=== PATIENT | female | born 1985 | race Two or more races ===

== ENCOUNTER 2017-02-15 02:04 | Inpatient (IN) | payer OTHER ==
[~2017-02-15] VITALS: Ht 167.6 cm; Wt 85.3 kg
[~2017-02-15 02:04] MED LIST: Docusate Sodium PO; IBUP800T28 PO; OXYC1TAB24 PO
[2017-02-15] MEDS ORDERED: Lactated Ringer's 1,000 ML IV ONE (02:25)
[2017-02-15 03:42] LABS: Mean Corpuscular Hemoglobin 25.3 pg (27.0-35.0); Mean Corpuscular Volume 78.5 fL (81-100)
[2017-02-15] MEDS ORDERED: CeFAZolin Inj 2 GM in IV Premix 1 EACH IV ONE (04:10)
[2017-02-15] MEDS ORDERED: Sodium Citrate-Citric Acid 15 mL Solution PO SCH (04:10)
[2017-02-15] MEDS ORDERED: Lactated Ringer's 1,000 ML IV SCH (04:10)
[2017-02-15] MEDS ORDERED: Hemorrhage Kit, Post Partum XX ONE ×2 (04:10→05:55)
[2017-02-15] MEDS ORDERED: Methylergonovine 0.2 mg/mL Inj IM PRN ×2 (04:10→05:55)
[2017-02-15] MEDS ORDERED: Carboprost 250 mCg/mL Inj IM PRN ×2 (04:10→05:55)
[2017-02-15] MEDS ORDERED: Oxytocin 10 Unit/mL Inj IM PRN ×2 (04:10→05:55)
--- NOTE | 2017-02-15 04:21 | PCM.HPANE ---
Patient Data Surgeon Admitting Provider:Mike Ortega MD Attending Provider:iMke Ortega MD Primary Care Physician:Mike Ortega MD Other Provider:Issac Rosenberg Anesthesia Reason for Visit Term Labor Ht/WT & BMI Body Mass Index Allergies Coded Allergies: latex (Verified Allergy, Unknown, 05/07/15) Past Anesthesia History Anesthesia History: Denies:: Abnormal Airway, Anesthesia Reactions, Difficult Intubation, Fam Anesthesia Reaction, Fam Malignant Hypertherm, Malignant Hyperthermia Medications Active Scripts oxyCODONE-Acetaminophen 5-325 mg 1 Tab Tablet1-2 Tab PO Q4H PRN For Pain #30 TABLET Ref 0 Prov:Mike Ortega MD 05/10/15 Ibuprofen 800 Mg [id number] Mg PO Q6H PRN For Pain #30 TABLET Ref 1 Prov:Mike Ortega MD 05/10/15 [Docusate Sodium] (Colace)100 MG CAPSULE No Conflict [id number] Mg PO BID #60 CAPSULE Ref 1 Prov:Mike Ortega MD 05/10/15 History History of ENT Problems?: No HEENT History: Denies:: Abnormal Airway Cataracts Difficult Intubation Dysphagia Glaucoma Hearing Problem Sinus Problem TMJ Denture Type: None Teeth Condition: Within Normal Limits Hx of Heart Problems?: No Cardiovascular History: Positive for:: Hypertension Denies:: AICD Abdominal Aortic Aneurism Atrial Fibrillation Cardiac Surgery Chest Pain Congestive Heart Failure Coronary Artery Disease Edema Heart Murmur Irregular Heartbeat Pacemaker Peripheral Vascular Rheumatic Fever Thrombophlebitis Valvular Heart Disease Hx of Respiratory Problem?: No Respiratory History: Positive for:: Cough Denies:: Asthma COPD Chest Surgery Dyspnea Emphysema Hemoptysis Oxygen Administration Pneumonia Pulmonary Embolism Tuberculosis Use of C-PAP Machine Use of Inhalers / NEBS Hx Neurologic Problems?: No Neurological History: Denies:: Alzheimer's Disease CVA Dementia Dizziness Headaches Multiple Sclerosis Parkinson's Disease Peripheral Neuropathy Seizures TIA Hx of GI Problems?: No Gastrointestinal History: Denies:: Cirrhosis Diverticulitis Gall Bladder Disease Gastroesphageal Reflux Gastrointestinal Bleeding Heartburn Hepatitis Hiatal Hernia Liver Disease Rectal Bleeding Hx of Problems?: No Genitourinary History: Denies:: HX of Hemodialysis Kidney Stones Urinary Tract Infection HX of Peritoneal Dialysis: No Hx Musculoskeletal Problems?: No Musculoskeletal History: Denies:: Back Injury Degenerative Joint Fibromyalgia Joint Replacement Musculoskeletal Trauma Myasthenia Gravis Osteoarthritis Rheumatoid Arthritis Systemic Lupus Hx of Psycho/Social Problems?: No Hx Surgeries?: No Hx Any Other Health Problems?: No Other History: Denies:: Cancer Endocrine Disease Hospitalization Thyroid Disease History Blood Transfusions: Denies:: Accept Blood Products? Blood Transfuse Reaction Blood Transfusions Hx Diabetes: No Smoking Status: Never Smoker Stop/Bang NATAILYA Risk Assessment: Low Risk, <3 Yes Risk Assessment Category Category 1A: Patient has history of documented sleep apnea, and HAS NOT received any narcotic, sedative or anesthesia administration during this stay. Category 1B: Patient has history of documented sleep apnea, and HAS received any narcotic , sedative or anesthesia administration during this stay Category 2: Patient has SUSPECTED Obstructive Sleep Apnea, and HAS received any narcotic , sedative or anesthesia administration during this stay. Category 3: Patient has SUSPECTED Obstructive Sleep Apnea and HAS NOT received narcotic, sedative or anesthesia administration during this stay. Category 4: Outpatient in Procedural Areas with known sleep apnea or who screen positive for High Risk via the STOP/BANG questionnaire. Exam Exam Vital Signs Vital Signs Date Time Temp Pulse Resp B/P Pulse Ox O2 Delivery O2 Flow Rate FiO2 02/15/17 02:37 78 General Appearance: Alert, Oriented X3, Cooperative, No Acute Distress HEENT/AIRWAY: MP 2 Lungs: Clear to Auscultation, Normal Air Movement Heart: Exam Unremarkable, Regular Rate/Rhythm, No Murmurs/Rubs/Gallops Meds/Labs/Diagnostics Admission Meds Current Medications Terbutaline Sulfate 0.25 mg 0.25 mg ONCE ONCE SUBQ Last administered on 02:37; Start 02/15/17 at 02:25; Stop 02/15/17 at 02:26; Status DC Lactated Ringer's (Lr) 1,000 ml @ 0 mls/hr Q0M ONCE IV Last administered on 02:37; Start 02/15/17 at 02:25; Stop 02/15/17 at 02:26; Status DC Labs Test 02/15/17 03:30 White Blood Count 14.8th/mm3 (3.8-10.1) Red Blood Count 5.25mil/mm3 (3.90-5.20) Hemoglobin 13.3g/dL (12.0-15.6) Hematocrit 41.2% (35.0-46.0) Mean Corpuscular Volume 78.5fL (81-100) Mean Corpuscular Hemoglobin 25.3pg (27.0-35.0) Mean Corpuscular Hemoglobin Concent 32.3% (32.0-37.0) Red Cell Distribution Width 14.5% (12.3-15.4) Platelet Count 251bil/L (150-400) Plan Impression Patient chart reviewed, patient interviewed and anesthestic plan with risks, benefits, and alternatives discussed, and informed consent obtained. NPO per Anesth. Guidelines: Yes ASA Physical Status: ASA2 Mod Systemic Disease Anesthetic Plan: SAB Bene/Risks/Altern/Consents: Yes HP Complete Prior to Induction: Yes Renae Thompson MD February 15, 2017 04:21
[2017-02-15] MEDS ORDERED: Morphine PF 1 mg/mL 10 mL Inj ONE (04:27)
[2017-02-15] MEDS ORDERED: Lactated Ringer's 1,000 ML IV PRN (05:16)
[2017-02-15] MEDS ORDERED: Dexamethasone 4 mg/mL Inj IVPUSH PRN (05:20)
[2017-02-15] MEDS ORDERED: MetoCLOpramide 5 mg/mL 2 mL Inj IVPUSH PRN (05:20)
[2017-02-15] MEDS ORDERED: Ondansetron 2 mg/mL 2 mL Inj IVPUSH PRN (05:20)
[2017-02-15] MEDS ORDERED: fentaNYL-PF 50 mCg/mL 2 mL Inj IVPUSH PRN (05:20)
[2017-02-15] MEDS ORDERED: Morphine PF 1 mg/mL 10 mL Inj EPIDURAL ONE (05:20)
[2017-02-15] MEDS ORDERED: Atropine 0.4 mg/mL Inj IV PRN (05:20)
[2017-02-15] MEDS ORDERED: EPHEDrine Sulfate 50 mg/mL Inj IVPUSH PRN (05:20)
[2017-02-15] MEDS ORDERED: hydrOXYzine Pamoate 25 mg Capsule PO PRN (05:55)
[2017-02-15] MEDS ORDERED: Acetaminophen IV 1,000 MG in IV Premix 1 EACH IV PRN (05:55)
[2017-02-15] MEDS ORDERED: Oxytocin 30 Units/500 mL LR 30 UNITS in IV Premix 1 EACH IV PRN (05:55)
[2017-02-15] MEDS ORDERED: Sodium Chloride LOK Flush 10 mL Syringe IVFLUSH PRN (05:55)
[2017-02-15] MEDS ORDERED: HYDROcodone-APAP 5-325 mg Tablet PO PRN (05:55)
[2017-02-15] MEDS ORDERED: LANOlin HPA 7 Gm Ointment TOPICAL PRN (05:55)
[2017-02-15] MEDS ORDERED: diphenhydrAMINE 50 mg Capsule PO PRN (05:55)
--- NOTE | 2017-02-15 05:57 | PCM.ANEP1 ---
Post Anesthesia PACU Phase 1 Assessment Vital Signs Vital Signs Date Time Temp Pulse Resp B/P Pulse Ox O2 Delivery O2 Flow Rate FiO2 02/15/17 02:37 78 Anesthetic Administered: SAB Level of Alertness: Awake, talking DUARTE's with Equal Strength: No Pain: No Nausea or Vomiting: No CV Function & Hydration Stable: No Airway Device: Oxygen Delivery: Room Air Lungs: Clear to Auscultation, Normal Air Movement Dermatome Level: T8 (Costal Margin) PACU Phase 2 Assessment Complications: No Follow up Care: No Patient Instructions Provided: N/A Renae Thompson MD February 15, 2017 05:57
[2017-02-15] MEDS: Lactated Ringer's 1,000 ML IV SCH ×2 (09:03→21:55)
[2017-02-15] MEDS ORDERED: Phenylephrine/NS 100 mCg/mL 10 mL Syringe IVPUSH ONE (09:11)
[2017-02-15] MEDS: oxyCODONE-Acetamin 5-325 mg Tablet PO PRN ×2 (16:00→19:59)
--- NOTE | 2017-02-15 18:42 | OP ---
[address] [address] OPERATIVE REPORT PATIENT: DAJA RUIZ : 1985 MR#: [id number] ADMIT: 02/15/2017 JOB ID: [id number] DATE OF SURGERY: PREOPERATIVE DIAGNOSIS(ES): 1. Multiparous female with history of prior section x1, at 38 weeks and 6 days estimated gestational age. 2. Third-trimester bleeding. 3. Increased contractions with the religion of blood. POSTOPERATIVE DIAGNOSIS(ES): 1. Multiparous female with history of prior section x1, at 38 weeks and 6 days estimated gestational age. 2. Third-trimester bleeding. 3. Increased contractions with the religion of blood. SURGERY: Repeat low transverse section via Pfannenstiel incision. SURGEON: Mike Ortega MD. BEHAVIOR CLINICIAN: Joshua Hawkins MD. INDICATIONS: The patient had a prior and desired a repeat but was having bleeding that was persistent, as well as increased contractions despite measures taken to stop these contractions, including terbutaline and IV fluids. FINDINGS: 1. Vigorous female with Apgars of 8 and 9. 2. Normal uterus, tubes, and ovaries. 3. Minimal scar tissue. ESTIMATED BLOOD LOSS: 600 cc. INTRAVENOUS FLUIDS: In during procedure, 1700 cc lactated Ringer's. URINE OUT: 50 cc clear urine at the end of the procedure. PATHOLOGY: Placenta sent for pathology due to the bleeding that was occurring. COMPLICATIONS: None. DETAIL: The patient was admitted to the hospital and her consent for her repeat was gone over again. Once we had decided to do surgery, Anesthesia was consulted and she was talked to about that risk as well. The patient was taken back to the OR where spinal anesthesia was performed. A procedural time-out was done. Two g of Ancef were given IV prior to the procedure. The prior incision site was used as the starting point for this surgery and a wound modification was done due to the keloid and scar. The wound was then extended downward to the fascia using the knife and the Bovie. Once this had been done, the fascia was incised in the midline and this incision was carried laterally in each direction using the Jane scissors. The fascia was then elevated superiorly and inferiorly using the India clamps and the underlying muscles were dissected off using the Bovie and the Jane scissors. There was a central defect in the underlying muscle that was then opened up manually and room was made for the underlying surgery on the uterus. Once this had been done, Metzenbaum scissors was used to create a bladder flap but this was done only with partial success above the bladder reflection due to the fact that scar tissue limited the mobility of this tissue layer. The uterus was opened at the low transverse segment in a very cautious manner, being careful to avoid the underlying fetus. Final entry into the uterus was done with the back of the knife to avoid trauma. This uterine incision was extended using bandage scissors. Clear fluid was obtained. The 's head delivered without complication except there was a nuchal cord that was easily reduced. The posterior shoulder was the hardest to deliver, but this was done in short order over the course of 30 seconds or so. Once the was delivered, the cord was clamped and cut and the was handed off to the waiting respiratory therapist. Cord blood was sent for analysis. The placenta was then delivered manually and the uterus was cleared of all clots and debris once exteriorized. The internal os was expanded using a ring forceps that then was taken off of the surgical field. The incision site was marked using Allis clamps. 1-0 chromic suture was used in a running, locked fashion to close the uterus and a second imbricating layer was placed. Once this had been done, additional bleeders were stopped using the Bovie. The pelvis and abdomen were irrigated and the uterus was replaced back into the pelvis. Interceed was used over the top of the wound to prevent future scarring. Once this had been done, the abdominal muscles were closed using 2-0 chromic in a running fashion. The fascia was closed using 0 Vicryl in a running fashion. Once all this had been done, the subcutaneous tissue was irrigated and additional scar modification was performed. The skin was undermined. The skin was brought back together using al. Counts were correct x3. There were no other complications of this procedure and the patient was in excellent condition following the procedure.
[2017-02-16] MEDS: oxyCODONE-Acetamin 5-325 mg Tablet PO PRN ×6 (00:09→20:41)
[2017-02-16] MEDS: Lactated Ringer's 1,000 ML IV SCH (05:50)
[2017-02-16 06:13] LABS: Mean Corpuscular Hemoglobin 25.1 pg (27.0-35.0); Mean Corpuscular Volume 81.6 fL (81-100)
--- NOTE | 2017-02-16 11:41 | PCM.PNOBPP ---
Subjective Date of Service February 16, 2017 Post : Repeat Ceserean Delivery Lochia: Normal Pain Management: PO pain meds Gastrointestinal: Good Appetite, No N/V Postop Activity: Ambulate without Assist Labs Laboratory Tests 02/16/17 05:45: White Blood Count 17.7, Red Blood Count 4.14, Hemoglobin 10.4, Hematocrit 33.8, Mean Corpuscular Volume 81.6, Mean Corpuscular Hemoglobin 25.1, Mean Corpuscular Hemoglobin Concent 30.8, Red Cell Distribution Width 14.7, Platelet Count 206 Exam Vital Signs Vital Signs: VS reviewed, stable Exam Abdomen: Fundus firm Extremities: No cords Heart: Exam Unremarkable General: Alert, Oriented X3 Surgical Wound : Incision General Appearence: Sharyn Dressing & Drainage Status: Dry & Intact OB Post Assessment/Plan Problems: (1) Status post repeat low transverse section Status: Acute ICD Code: Z98.891 Pain Evaluation: Adequate Pain Control Post plan: Continue routine post care, Discharge home tomorrow Mike Ortega MD February 16, 2017 11:41
[2017-02-17] MEDS: oxyCODONE-Acetamin 5-325 mg Tablet PO PRN ×3 (01:26→08:39)
--- NOTE | 2017-02-17 08:14 | PCM.DC.OB ---
Obstetrical Discharge Summary Date of Service Feb 17, 2017 Date of hospital admission February 15, 2017 at 04:05 Date of Discharge: Feb 17, 2017 Providers Admitting Physician: Mike Villarreal MD Primary Care Physician: Mike Villarreal MD Attending Physician: Mike Villarreal MD Problems: (1) Status post repeat low transverse section Status: Acute ICD Code: Z98.891 Consultations None Invasive procedures Repeat LTCS Date of Procedure: February 15, 2017 Hospital Course: Patient presented with third trimester bleeding...was starting to heavily contract. We had to bump up our of her by two days. This went well. Recovered well. ([Docusate Sodium]) 100 MG CAPSULE 100 MG PO BID Prescribed by: MIKE VILLARREAL MD Ibuprofen (Ibuprofen) 800 Mg Tablet 800 MG PO Q6H PRN PRN For Pain Prescribed by: MIKE VILLARREAL MD oxyCODONE-Acetaminophen 5-325 mg (oxyCODONE-Acetaminophen 5-325 mg) 1 Tab Tablet 1-2 TAB PO Q4H PRN PRN For Pain Prescribed by: MIKE VILLARREAL MD Follow-up plan See me in 8 weeks Discharge Diet: No restrictions Discharge Activity-General: Pelvic Rest for 6 weeks, Activity as pain allows, Activity as energy allows, No lifting >15 pounds for 2 weeks Mike Villarreal MD Feb 17, 2017 08:14
--- NOTE | 2017-02-17 08:16 | PCM.DIOB ---
Obstetrical Disch Instruction Date of Service: Feb 17, 2017 Dates of Hospitalization Date of Hospital Admission February 15, 2017 at 04:05 Providers Admitting Physician: Mike Ortega MD Primary Care Physician: Mike Ortega MD Attending Physician: Mike Ortega MD Discharge Diagnosis Problems: (1) Status post repeat low transverse section Status: Acute ICD Code: Z98.891 Diet Discharge Diet: No restrictions Activity Discharge Activity-General: Pelvic Rest for 6 weeks, Try not to overdue, Be up and about, Balance rest and activity, Activity as pain allows, Activity as energy allows, No lifting >15 pounds for 2 weeks Dressing and Incisional Care Dressing Care: Allow Steri Stripes to fall off Hygiene: May shower, DO NOT soak incision under water, NO bathtub, hot tub or whirlpool Follow Up Plan Follow-up Provider (F9): iMke Ortega MD Follow-up appointment: Weeks (8) Call your provider for: Fever or Chills, Heavy vaginal bleeding, Excessive constipation, Red painful breasts Mike Ortega MD Feb 17, 2017 08:16
[2017-02-17 08:18] VITALS: BP 99/45; PULSE 90; RESP 16
[2017-02-17] MEDS ORDERED: DOCU-41 PO (08:18)
[2017-02-17] MEDS ORDERED: OXYC1TAB24 PO (08:18)
[2017-02-17] MEDS ORDERED: IBUP800T28 PO (08:18)
--- NOTE | 2017-02-18 14:00 | PATH ---
SURGICAL PATHOLOGY Attending Physician:Mike Ortega MD CASE STATUS: Signed Out PATIENT NAME: DAJA RUIZ PID: [id number] : 1985 DATE COLLECTED:02/15/2017 16:37 SPECIMEN: Placenta CLINICAL HISTORY: 3RD TRIMESTER BLEED BLEEDING HEAVY, 0 OTHER SIGNS OF ABRUPTION 1. PLACENTA FINAL DIAGNOSIS: 1.PLACENTA WITH UMBILICAL CORD AND MEMBRANES: 1. PLACENTA: 463 GRAMS. NEGATIVE FOR EVIDENCE OF INFARCTION, SIGNIFICANT INFLAMMATION, AND SIGNIFICANT VASCULAR LESIONS. 2. UMBILICAL CORD: 11.4 CM IN LENGTH WITH INSERTION 5.0 CM FROM THE PLACENTAL EDGE. THREE NORMAL BLOOD VESSELS. NEGATIVE FOR SIGNIFICANT INFLAMMATION. 3. MEMBRANES: RUPTURED AT THE FREE PLACENTAL EDGE. NEGATIVE FOR SIGNIFICANT INFLAMMATION. ICD10 O26.853 GROSS DESCRIPTION: The specimen is received in formalin, labeled with the patient's name and consists of an intact placenta and includes placental disc (463 g, 18.5 x 17.2 x 2.5 cm), umbilical cord (length-11.4 cm, diameter-1.1 x 0.9 cm) and membranes. The membranes are ruptured at the free edge of the placenta and are semi-translucent. The umbilical cord is attached 5.0 cm from the edge of the placenta and contains 3 vessels. The surface is smooth and shiny multiple opacities (1.0 x 0.7 cm-3.0 x 1.0 cm) involving approximately 25 % of the surface. No evidence of meconium is identified. The maternal surface is dark maroon with normal cotyledon formation. The placental disc is spongy with no hematomas, infarcts, nodules, masses, or lesions. Section code: (A) edge of placenta with membranes, umbilical cord; (B-C, D-E, F, G) placenta, 4 full thickness sections. 02/16/17 jm MICRO DESCRIPTION: See diagnosis. ICD-9 CODES: CPT CODES: 1: 54349 Electronically Signed Out Jose Levy MD [facility] [address], [place] [address] Technical component performed at [facility], [address], [place], [address]
== END 2017-02-17 08:56 | disposition home or self-care (01) | DRG 766 ==
LOC: FBCO 02:04 → FBC 04:05
PROVIDERS: ADMIT Family Medicine; ATTEND Family Medicine
PROC: 10D00Z1 Extraction of Products of Conception, Low, Open Approach (ICD-10-PCS; principal; 2017-02-15 05:00)
DX: O34.211 Maternal care for low transverse scar from previous cesarean delivery (principal); O69.81X0 Labor and delivery complicated by cord around neck, without compression, not applicable or unspecified; Z37.0 Single live birth; Z3A.38 38 weeks gestation of pregnancy